=== PATIENT | female | born 1945 | race African-American/Black ===

== ENCOUNTER → 2016-07-27 | Outpatient (CLI) | payer MEDICARE ==
--- NOTE | 2016-07-27 11:42 | RAD ---
Indication thyromegaly. Grayscale imaging of the thyroid was performed. Note is made of a previous examination 09/22/2011. The right lobe of the thyroid measures 6.2 x 4.6 x 3.7 cm. The right lobe has a very inhomogeneous appearance and is dominated by a 5.5 cm nodule. The left lobe of the thyroid measures 5.5 x 3 x 3.3 cm and too is dominated by a single large 4 cm nodule. IMPRESSION: Enlarged thyroid. Each lobe of the thyroid contains a dominant nodule as outlined above
--- NOTE | 2016-07-27 14:47 | RAD ---
DATE: 07/27/2016 EXAM: DIGITAL SCREEN BILAT W/CAD HISTORY: Screening COMPARISON: 09/22/2011 This study was interpreted with the benefit of Computerized Aided Detection (CAD). FINDINGS: Breast Density: HETERO The breast parenchyma Is heterogeneiously dense, which could reduce sensitivity of mammography. Breast parenchyma level C. No dominant mass or suspect calcifications are seen in either breast. Benign-appearing calcifications are noted in the breasts. A significant change relative to the previous exam is not seen. IMPRESSION: Benign findings BI-RADS CATEGORY: 2 BENIGN FINDING(S) RECOMMENDED FOLLOW-UP: 12M 12 MONTH FOLLOW-UP PQRS compliance statement: Patient information was entered into a reminder system with a target due date 07/27/2017 for the next mammogram. Mammography is a sensitive method for finding small breast cancers, but it does not detect them all and is not a substitute for careful clinical examination. A negative mammogram does not negate a clinically suspicious finding and should not result in delay in biopsying a clinically suspicious abnormality. "Our facility is accredited by the [employer] Mammography Program."
== END | disposition home or self-care (01) ==
LOC: MAMMO 09:49
PROVIDERS: ATTEND Family Medicine
DX: Z12.31 Encounter for screening mammogram for malignant neoplasm of breast (principal); Z78.0 Asymptomatic menopausal state; E01.0 Iodine-deficiency related diffuse (endemic) goiter
CPT/HCPCS: 76536; G0202; 77067

== ENCOUNTER → 2016-08-25 | Outpatient (CLI) | payer MEDICARE ==
[~2016-08-25] VITALS: Ht 157.5 cm; Wt 77.1 kg
[~2016-08-25] MED LIST: B12 PO; ERGO500027 PO; MULT-114 PO; [UNRECOGNIZED DRUG - REMARK] PO; [UNRECOGNIZED DRUG - REMARK] PO
[2016-08-25 10:00] VITALS: BP 152/79
--- NOTE | 2016-08-25 12:23 | RAD ---
Ultrasound-guided bilateral thyroid biopsy, 08/25/2016: History: Dominant thyroid nodules Previous studies demonstrated a multinodular thyroid gland with large, dominant heterogeneous nodules in both lobes. Under local anesthesia, aseptic conditions and sonographic guidance we first targeted the dominant nodule in the right lobe of the gland. A 25-gauge needle was passed into this nodule via an anteromedial approach. 4 separate aspirates were obtained from this nodule with the materials sent to pathology for evaluation. In the same manner we then targeted the dominant left thyroid nodule. 4 additional 25-gauge aspirates from the left thyroid nodule were obtained and sent to pathology for evaluation. Hemostasis was then obtained. The patient tolerated the procedure well and left the department in good condition. The pathology results are pending.
--- NOTE | 2016-08-29 10:02 | PATHOLOGY ---
CYTOPATHOLOGY REPORT CLINICAL HISTORY: Bilateral thyroid nodules SPECIMEN(S) RECEIVED: A.Fine needle aspiration, Left thyroid B.Fine needle aspiration, Right thyroid FINAL DIAGNOSIS: A. Fine needle aspiration, left thyroid: - Thornton category: Benign. - Specimen consists of benign thyroid follicular cells admixed with hemosiderin-laden macrophages, colloid, and blood (see comment). B. Fine needle aspiration, right thyroid: - Thornton category: Benign. - Specimen consists of benign thyroid follicular cells admixed with hemosiderin-laden macrophages, colloid, and blood (see comment). COMMENT: The findings are most consistent with a follicular lesion, favor an adenomatoid nodule. 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 This case is also reviewed by Dr. Keesha oMntague. (GIA:annita; d/t: 08/26/16) PATHOLOGIST: Demetrius Monzon M.D. REPORT ELECTRONICALLY SIGNED BY: Demetrius Monzon M.D. DATE/TIME: 08/29/2016 10:01 GROSS PATHOLOGY: A. Fine needle aspiration, Left thyroid: The specimen is labeled "Iza Lang" and consists of two H and E slides, two fixed slides, two air dried slides. Thirty mL of clear pink fluid in CytoLyt from the needle rinse is also submitted and one ThinPrep slide was prepared from this material. One RNA retain vial has been received. B. Fine needle aspiration, Right thyroid: The specimen is labeled "Iza Lang" and consists of Two H and E slides, two fixed slides, two air dried slides. Thirty mL of clear pink flui in CytoLyt from the needle rinse is also submitted and one ThinPrep slide was prepared from this material. One RNA retain vial has been received. (mm 08.25.2016) SWITCHER(S): FIONA Vargas(ASCP)IAC INITIAL CPT CODE(S): A; 94077 B; 76986 Professional services performed by [facility] at [address] [address] Technical services performed by [facility] at [address] [place] [address], [address], [place] [address]. PATIENT: IZA LANG /AGE: 9 1945 (Age: 70) SEX: F PATIENT #: [id number] ALT CASE #: SPECIMEN COLLECTION DATE: 08/25/2016 SPECIMEN RECEIVED DATE: 08/25/2016 [facility] [address] [facility], [address] [place] [address] PHONE: [phone] DIRECTOR: Delfin Chase M.D. * * * END OF REPORT * * *
== END | disposition home or self-care (01) ==
LOC: US 09:41
PROVIDERS: ATTEND Family Medicine
DX: E04.1 Nontoxic single thyroid nodule (principal); I10 Essential (primary) hypertension
CPT/HCPCS: 60300; 76942; 88173

== ENCOUNTER 2017-04-08 15:05 | Emergency (ER) | payer MEDICARE ==
[2017-04-08] MEDS: IV NORMAL SALINE 1000ML BAG 1,000 ML IV ×2 (15:58)
[2017-04-08] MEDS: ONDANSETRON PF 4 MG/2 ML VIAL. IV ×2 (15:59)
[2017-04-08 16:05] LABS: BASO % 1 % (0-3); EOS % 0 % (0-3); HEMATOCRIT 36.8 % (36.0-47.0); HEMOGLOBIN 12.1 g/dL (12.0-15.5); LYMPH # 0.5 x10^3/uL (1.0-4.8); LYMPH % 9 % (24-48); MEAN CORPUSCULAR HEMOGLOBIN 28 pg (25-35); MEAN CORPUSCULAR HGB CONC 33 g/dL (31-37); MEAN CORPUSCULAR VOLUME 84 fL (79-100); MONO # 0.2 x10^3/uL (0.0-1.1); MONO % 4 % (0-9); NEUT # 5.2 x10^3uL (1.8-7.7); NEUT % 87 % (31-73); PLATELET COUNT 171 x10^3/uL (140-400); RED BLOOD COUNT 4.37 x10^6/uL (3.50-5.40); RED CELL DISTRIBUTION WIDTH 14.7 % (11.5-14.5)
[2017-04-08 16:07] LABS: ADD MAN DIFF? YES
[2017-04-08 16:10] LABS: ANION GAP 9 (6-14); BLOOD UREA NITROGEN 14 mg/dL (7-20); BUN/CREATININE RATIO 18 (6-20); CALCIUM 9.7 mg/dL (8.5-10.1); CARBON DIOXIDE 27 mmol/L (21-32); CHLORIDE 103 mmol/L (98-107); CREATININE 0.8 mg/dL (0.6-1.0); GFR 85.1; GLUCOSE 119 mg/dL (70-99); POTASSIUM 4.2 mmol/L (3.5-5.1); SODIUM 139 mmol/L (136-145)
[2017-04-08 16:16] LABS: ALBUMIN 3.9 g/dL (3.4-5.0); ALBUMIN/GLOBULIN RATIO 1.1 (1.0-1.7); ALK PHOS 78 U/L (46-116); ALT (SGPT) 14 U/L (14-59); AST (SGOT) 16 U/L (15-37); LIPASE 75 U/L (73-393); TOTAL BILIRUBIN 0.4 mg/dL (0.2-1.0); TOTAL PROTEIN 7.6 g/dL (6.4-8.2)
[2017-04-08 16:18] LABS: TROPONINI < 0.017 ng/mL (0.000-0.055)
[2017-04-08 17:17] LABS: % ATYL 3 % (0-0); % BANDS 7 % (0-9); % BASOS 2 % (0-3); % LYMPHS 6 % (24-48); % MONOS 1 % (0-10); % SEGS 81 % (35-66); PLT ESTIMATE ADEQUATE (ADEQUATE)
[2017-04-08 17:38] LABS: BILIRUBIN,URINE NEGATIVE (NEG); CLARITY,URINE CLEAR; COLOR,URINE YELLOW; GLUCOSE,URINE NEGATIVE (NEG); NITRITE,URINE NEGATIVE (NEG); PH,URINE 7.5; PROTEIN,URINE NEGATIVE (NEG-TRACE)
[2017-04-08 17:43] LABS: BACTERIA,URINE 0 /HPF (0-FEW); RBC,URINE 0 /HPF (0-2); SQUAMOUS EPITHELIAL CELL,UR FEW /LPF; WBC,URINE 0 /HPF (0-4)
== END 2017-04-08 18:14 | disposition home or self-care (01) ==
LOC: ER 15:05
DX: B34.9 Viral infection, unspecified (principal); E86.0 Dehydration; E03.9 Hypothyroidism, unspecified; I10 Essential (primary) hypertension; E89.0 Postprocedural hypothyroidism; Z88.0 Allergy status to penicillin; Z98.51 Tubal ligation status
CPT/HCPCS: 36415; 80053; 81001; 83690; 84484; 85007; 85025; 93005; 96361; 96374; 99285-25; J2405; J7030

== ENCOUNTER → 2017-07-25 | Outpatient (CLI) | payer OTHER, MEDICARE | END | disposition home or self-care (01) | LOC: US 14:54 | DX: Z12.31 Encounter for screening mammogram for malignant neoplasm of breast (principal); E04.2 Nontoxic multinodular goiter | CPT/HCPCS: 76536; 77063; 77067 ==

== ENCOUNTER 2020-06-29 10:25 | Emergency (ER) | payer MEDICARE ==
[~2020-06-29] VITALS: Ht 159.4 cm; Wt 69.0 kg
[~2020-06-29 10:25] MED LIST changes: +ONDA4TAB10 SL
[2020-06-29] MEDS ORDERED: IV NORMAL SALINE 1000ML BAG 1,000 ML IV SCH (11:00)
[2020-06-29] MEDS ORDERED: ONDANSETRON PF 4 MG/2 ML VIAL. IVP ONE (11:00)
--- NOTE | 2020-06-29 11:16 | RAD ---
CT Head without contrast Indication: Reason: dizziness / Spl. Instructions: / History: Date of service:06/29/2020 10:58 AM. Comparison: None available. Technique: Contiguous helical images are obtained from foramen magnum, to the vertex without IV contr ast . Findings: Prominence of cortical sulci and ventricular system is noted consistent with age-related at rophy. There are areas of mild low attenuation both periventricular and subcortical deep white matter cyst and small vessel ischemic changes. No mass , midline shift , hemorrhage or acute infarct is pr esent. Bone windows are normal without calvarial abnormality. The visualized orbits, paranasal sinuse s and mastoid air cells are clear . Impression: 1. No acute intracranial process detected. 2. Mild age-related atrophy is noted. PQRS Compliance Statement: One or more of the following individualized dose reduction techniques were utilized for this examinat ion: 1. Automated exposure control 2. Adjustment of the mA and/or kV according to patient size 3. Use of iterative reconstruction technique Electronically signed by: Yolanda Shields MD (06/29/2020 11:14 AM) [id number]
[2020-06-29 11:24] LABS: CALCIUM 8.6 mg/dL (8.5-10.1); CREATININE 0.8 mg/dL (0.6-1.0); GFR 84.4; POTASSIUM 3.8 mmol/L (3.5-5.1)
[2020-06-29 11:31] LABS: ALBUMIN 3.5 g/dL (3.4-5.0); TOTAL BILIRUBIN 0.3 mg/dL (0.2-1.0)
[2020-06-29 11:40] LABS: BASO % 1 % (0-3); EOS # 0.1 x10^3/uL (0.0-0.7); EOS % 2 % (0-3); HEMATOCRIT 35.8 % (36.0-47.0); LYMPH # 0.7 x10^3/uL (1.0-4.8); LYMPH % 17 % (24-48); MEAN CORPUSCULAR HEMOGLOBIN 29 pg (25-35); MEAN CORPUSCULAR HGB CONC 34 g/dL (31-37); MEAN CORPUSCULAR VOLUME 85 fL (79-100); MONO # 0.2 x10^3/uL (0.0-1.1); MONO % 4 % (0-9); NEUT # 3.3 x10^3/uL (1.8-7.7); NEUT % 77 % (31-73); PLATELET COUNT 143 x10^3/uL (140-400); RED CELL DISTRIBUTION WIDTH 14.5 % (11.5-14.5); WHITE BLOOD COUNT 4.3 x10^3/uL (4.0-11.0)
[2020-06-29 11:53] LABS: BARBITURATES NEG (NEG); BENZODIAZEPINES NEG (NEG); CANNABINOIDS NEG (NEG); COCAINE NEG (NEG); METHADONE NEG (NEG); OPIATES NEG (NEG); PHENCYCLIDINE NEG (NEG)
--- NOTE | 2020-06-29 11:55 | EKG ---
[facility] [address] [place] [address] Test Date: 2020-06-29 Test Time: 10:47:22 Pat Name: REBECA WORLEY Department: Room: Gender: F Multiple Coil Winder: QUYNH : 1945 Requested By: CHOLO MILLS Order Number: [id number] Reading MD: Measurements Intervals [place] Rate: 66 P: 39 [place]: 174 QRS: 12 QRSD: 74 T: 28 QT: 438 QTc: 461 Interpretive Statements SINUS RHYTHM NO SPECIFIC ECG ABNORMALITIES RI6.01 No previous ECG available for comparison
[2020-06-29 11:57] LABS: AMPHETAMINE/METHAMPHETAMINE NEG (NEG)
--- NOTE | 2020-06-29 12:08 | PHYS DOC ---
Past Medical History Past Medical History: Hypertension, Hypothyroid Past Surgical History: Tubal ligation, Other Additional Past Surgical Histo: thyrodectomy Smoking Status: Never Smoker Alcohol Use: None Drug Use: None Adult General Chief Complaint Chief Complaint: WEAKNESS/GENERALIZED HPI HPI Patient is a 74 year old female presenting the emergency department complaint of new onset of nausea vomiting. Patient states approximately 6 hours prior to arrival she started having new onset of sensation of generalized dizziness not associated with movement. This then worsened in severity and developed new onset of nausea with nonbloody nonbilious vomiting. Patient also states that she is generally feeling fatigued but denies any pain. Currently denies any headache, chest pain or abdominal pain. Review of Systems Review of Systems Constitutional: Denies fever or chills [] Eyes: Denies change in visual acuity, redness, or eye pain [] HENT: Denies nasal congestion or sore throat [] Respiratory: Denies cough or shortness of breath [] Cardiovascular: No additional information not addressed in HPI [] GI: Denies abdominal pain, nausea, vomiting, bloody stools or diarrhea [] : Denies dysuria or hematuria [] Musculoskeletal: Denies back pain or joint pain [] Integument: Denies rash or skin lesions [] Neurologic: Denies headache, focal weakness or sensory changes [] Endocrine: Denies polyuria or polydipsia [] All other systems were reviewed and found to be within normal limits, except as documented in this note. Current Medications Current Medications Current Medications Medications (Trade) Dose Ordered Sig/Luís Start Time Stop Time Status Last Admin Dose Admin Ondansetron HCl (Zofran) 4 mg 1X ONCE 06/29/20 11:00 06/29/20 11:01 DC 06/29/20 11:11 4 MG Sodium Chloride 1,000 ml @ 1,000 mls/hr Q1H 06/29/20 11:00 06/29/20 11:59 DC 06/29/20 11:11 1,000 MLS/HR Allergies Allergies Allergies Coded Allergies Type Severity Reaction Last Updated Verified Penicillins Allergy Intermediate RASH 08/25/16 Yes Physical Exam Physical Exam Constitutional: Well developed, well nourished, no acute distress, non-toxic appearance. [] HENT: Normocephalic, atraumatic, bilateral external ears normal, oropharynx moist, no oral exudates, nose normal. [] Eyes: PERRLA, EOMI, conjunctiva normal, no discharge. [] Neck: Normal range of motion, no tenderness, supple, no stridor. [] Cardiovascular:Heart rate regular rhythm, no murmur [] Lungs & Thorax: Bilateral breath sounds clear to auscultation [] Abdomen: Bowel sounds normal, soft, no tenderness, no masses, no pulsatile mas ses. [] Skin: Warm, dry, no erythema, no rash. [] Back: No tenderness, no CVA tenderness. [] Extremities: No tenderness, no cyanosis, no clubbing, ROM intact, no edema. [] Neurologic: Alert and oriented X 3, normal motor function, normal sensory function, no focal deficits noted. [] Psychologic: Affect normal, judgement normal, mood normal. [] Current Patient Data Vital Signs Vital Signs Date Time Temp Pulse Resp B/P (MAP) Pulse Ox O2 Delivery O2 Flow Rate FiO2 06/29/20 10:25 97.6 98 16 164/81 (108) 99 Room Air 97.6 Lab Values Laboratory Tests Test 06/29/20 10:53 06/29/20 11:01 06/29/20 11:25 Glucose (Fingerstick) 139 mg/dL (70-99) H White Blood Count 4.3 x10^3/uL (4.0-11.0) Red Blood Count 4.20 x10^6/uL (3.50-5.40) Hemoglobin 12.0 g/dL (12.0-15.5) Hematocrit 35.8 % (36.0-47.0) L Mean Corpuscular Volume 85 fL (79-100) Mean Corpuscular Hemoglobin 29 pg (25-35) Mean Corpuscular Hemoglobin Concent 34 g/dL (31-37) Red Cell Distribution Width 14.5 % (11.5-14.5) Platelet Count 143 x10^3/uL (140-400) Neutrophils (%) (Auto) 77 % (31-73) H Lymphocytes (%) (Auto) 17 % (24-48) L Monocytes (%) (Auto) 4 % (0-9) Eosinophils (%) (Auto) 2 % (0-3) Basophils (%) (Auto) 1 % (0-3) Neutrophils # (Auto) 3.3 x10^3/uL (1.8-7.7) Lymphocytes # (Auto) 0.7 x10^3/uL (1.0-4.8) L Monocytes # (Auto) 0.2 x10^3/uL (0.0-1.1) Eosinophils # (Auto) 0.1 x10^3/uL (0.0-0.7) Basophils # (Auto) 0.0 x10^3/uL (0.0-0.2) Sodium Level 143 mmol/L (136-145) Potassium Level 3.8 mmol/L (3.5-5.1) Chloride Level 108 mmol/L (98-107) H Carbon Dioxide Level 27 mmol/L (21-32) Anion Gap 8 (6-14) Blood Urea Nitrogen 18 mg/dL (7-20) Creatinine 0.8 mg/dL (0.6-1.0) Estimated GFR (Cockcroft-Gault) 84.4 BUN/Creatinine Ratio 23 (6-20) H Glucose Level 148 mg/dL (70-99) H Calcium Level 8.6 mg/dL (8.5-10.1) Total Bilirubin 0.3 mg/dL (0.2-1.0) Aspartate Amino Transferase (AST) 19 U/L (15-37) Alanine Aminotransferase (ALT) 16 U/L (14-59) Alkaline Phosphatase 68 U/L (46-116) Creatine Kinase 121 U/L (26-192) Total Protein 7.0 g/dL (6.4-8.2) Albumin 3.5 g/dL (3.4-5.0) Albumin/Globulin Ratio 1.0 (1.0-1.7) Lipase 59 U/L (73-393) L Urine Collection Type Unknown Urine Color Straw Urine Clarity Clear Urine pH 7.0 (<5.0-8.0) Urine Specific [place] >=1.030 (1.000-1.030) Urine Protein Negative mg/dL (NEG-TRACE) Urine Glucose (UA) Negative mg/dL (NEG) Urine Ketones (Stick) Negative mg/dL (NEG) Urine Blood Negative (NEG) Urine Nitrite Negative (NEG) Urine Bilirubin Negative (NEG) Urine Urobilinogen Dipstick 0.2 mg/dL (0.2 mg/dL) Urine Leukocyte Esterase Negative (NEG) Urine RBC 0 /HPF (0-2) Urine WBC 0 /HPF (0-4) Urine Amorphous Sediment Present /HPF Urine Bacteria 0 /HPF (0-FEW) Urine Opiates Screen Neg (NEG) Urine Methadone Screen Neg (NEG) Urine Barbiturates Neg (NEG) Urine Phencyclidine Screen Neg (NEG) Urine Amphetamine/Methamphetamine Neg (NEG) Urine Benzodiazepines Screen Neg (NEG) Urine Cocaine Screen Neg (NEG) Urine Cannabinoids Screen Neg (NEG) Urine Ethyl Alcohol Neg (NEG) Laboratory Tests 06/29/20 11:01 Laboratory Tests 06/29/20 11:01 EKG EKG [] Radiology/Procedures Radiology/Procedures [] Course & Med Decision Making Course & Med Decision Making Pertinent Labs and Imaging studies reviewed. (See chart for details) 34-year-old female presented emergency department for new onset of dizziness associated nausea and vomiting. No significant headache which she reports and there is no significant neurologic findings or abdominal pain or tenderness on exam. Obtain a CT head to make sure there is no evidence of central findings and will treat the patient symptomatically. 13:45 - CT head negative for any acute intracranial process or hemorrhage. Patient treated symptomatically now states that her symptoms have improved and is denying any dizziness. Repeat hints exam negative and reassuring against central process. Patient ambulated to the bathroom without difficulty is no longer nauseous and blood pressure is in the normal limits. At this time will discharge Dragon Disclaimer Dragon Disclaimer This electronic medical record was generated, in whole or in part, using a voice recognition dictation system. Departure Departure Impression: Primary Impression: Dizziness Additional Impression: Nausea and vomiting Disposition: HOME / SELF CARE / HOMELESS Condition: GOOD Referrals: ANA MORFIN MD (PCP) Patient Instructions: Nausea and Vomiting Additional Instructions: EMERGENCY DEPARTMENT GENERAL DISCHARGE INSTRUCTIONS Thank you for coming to [facility] Emergency Department (ED) today and trusting us with you care. We trust that you had a positive experience in our Emergency Department. If you wish to speak to the department management, you may call the Director at [phone]. YOUR FOLLOW UP INSTRUCTIONS ARE FOLLOWS: 1. Do you have a private Doctor? If you do not have a private doctor, please ask for a resource list of physicians or clinics that may be able to assist you with follow up care. 2. The Emergency Physicain has interpreted your x-rays. The X-Ray specialist will also review them. If there is a change in the findings, you will be notified in 48 hours when at all possible. 3. A lab test or culture has been done, your results will be reviewed and you will be notified if you need a change in treatment. ADDITIONAL INSTRUCTIONS AND INFORMATION: 1. Your care today has been supervised by a physician who is specially trained in emergency care. Many problems require more than one evaluation for a complete diagnosis and treatment. We recommend that you schedule your follow up appointment as re commended to ensure complete treatment of you illness or injury. If you are unable to obtain follow up care and continue to have a problem, or if your condition worsens, we recommend that you return to the ED. 2. We are not able to safely determine your condition over the phone nor are we able to give sound medical advice over the phone. For these safety reasons, if you call for medical advice we will ask you to come to the ED for further evaluation. 3. If you have any questions regarding these discharge instructions please call the ED at [phone]. SAFETY INFORMATION: In the interest of safety, wellness, and injury prevention; we encourage you to wear your sealbelt, if you smoke; quite smoking, and we encourage family to use a protective helmet for bicycling and other sporting events that present an increased risk for head injury. IF YOUR SYMPTOMS WORSEN OR NEW SYMPTOMS DEVELOP, OR YOU HAVE CONCERNS ABOUT YOUR CONDITION; OR IF YOUR CONDITION WORSENS WHILE YOU ARE WAITING FOR YOUR FOLLOW UP APPOINTMENT; EITHER CONTACT YOUR PRIMARY CARE DOCTOR, THE PHYSICIAN WHOSE NAME AND NUMBER YOU WERE GIVEN, OR RETURN TO THE ED IMMEDIATELY. Scripts Ondansetron Hcl (ZOFRAN) 4 Mg Tablet 1 TAB PO PRN Q6-8HRS for nausea, #12 TAB Prov: CHOLO MILLS MD 06/29/20 Meclizine Hcl (MECLIZINE HCL) 25 Mg Tablet 1 TAB PO TID for dizziness, #20 TAB Prov: CHOLO MILLS MD 06/29/20 Problem Qualifiers CHOLO MILLS MD Jun 29, 2020 12:08
[2020-06-29 12:40] LABS: BILIRUBIN,URINE NEGATIVE (NEG); CLARITY,URINE CLEAR; COLOR,URINE STRAW; NITRITE,URINE NEGATIVE (NEG); PROTEIN,URINE NEGATIVE (NEG-TRACE); UROBILINOGEN,URINE 0.2 mg/dL (0.2 mg/dL)
[2020-06-29 12:41] LABS: AMORPHOUS SEDIMENT,UR PRESENT /HPF; BACTERIA,URINE 0 /HPF (0-FEW); RBC,URINE 0 /HPF (0-2); WBC,URINE 0 /HPF (0-4)
[2020-06-29 13:38] VITALS: BP 156/72
[2020-06-29] MEDS ORDERED: ONDA4TAB7 PO (13:50)
[2020-06-29] MEDS ORDERED: MECL-75 PO (13:50)
== END 2020-06-29 13:55 | disposition home or self-care (01) ==
LOC: ER 10:25
DX: R42 Dizziness and giddiness (principal); R11.2 Nausea with vomiting, unspecified; R20.2 Paresthesia of skin; R53.83 Other fatigue; I10 Essential (primary) hypertension; E03.9 Hypothyroidism, unspecified; Z98.51 Tubal ligation status; Z98.890 Other specified postprocedural states
CPT/HCPCS: 36415; 70450; 80053; 80307; 81001; 82550; 82962; 83690; 85025; 93005; 96361; 96374; 99285; J2405; J7030

== ENCOUNTER → 2020-11-19 | Outpatient (CLI) | payer MEDICARE ==
[~2020-11-19] MED LIST changes: +MECL-75 PO; +ONDA4TAB7 PO
--- NOTE | 2020-11-19 14:44 | RAD ---
EXAM: Thyroid sonogram. HISTORY: Thyromegaly. TECHNIQUE: Sonographic imaging of the thyroid was performed. COMPARISON: 07/25/2017. FINDINGS: The right there are lobe measures 7.9 x 5.8 x 4.6 cm. The left thyroid lobe measures 5.0 x 3.1 x 2.8 cm. The thyroid isthmus measures 4.1 mm. The thyroid parenchyma is diffusely heterogeneous and contains bilateral dominant nodules. The domina nt nodule on the right is heterogeneous and predominantly isoechoic measuring 5.9 x 5.1 x 3.5 cm, pre viously measuring 5.9 x 5.6 x 4.5 cm. The dominant nodule on the left is heterogeneous and predominan tly isoechoic measuring 3.9 x 2.8 x 2.7 cm, previously measuring 3.9 x 3.4 x 3.0 cm. This demonstrate s tiny internal cystic components. IMPRESSION:. 1. Heterogeneous enlarged thyroid 2. Dominant bilateral thyroid nodules measuring 5.9 cm on the right and 3.9 cm the left. TI-RADS Che gory 3. Fine-needle aspiration of both lesions was previously performed with benign pathology finding s. The lesions are stable to slightly decreased in size compared to prior studies, allowing for diffe rences in imaging and measurement technique. Electronically signed by: Ely Marie MD (11/19/2020 2:42 PM) [id number]
--- NOTE | 2020-11-19 14:52 | RAD ---
EXAM: Bilateral digital screening mammogram with tomosynthesis. HISTORY: 74-year-old female presents for screening mammography. TECHNIQUE: Full-field digital craniocaudal and mediolateral oblique 2D and 3D tomosynthesis images of both breasts are obtained for evaluation. Computer aided detection was applied. COMPARISON: 07/25/2017 BREAST PARENCHYMAL DENSITY: Level D - Extremely dense. FINDINGS: There is no new suspicious mass, microcalcification or region of architectural distortion. There are stable areas of benign asymmetry and nodularity within both breasts. There are multiple martha ign calcifications. IMPRESSION: BI-RADS Category 2: Benign finding(s). RECOMMENDATION: Annual mammography is recommended. If your mammogram demonstrates that you have dense breast tissue, which could hide abnormalities, and if you have other risk factors for breast cancer that have been identified, you might benefit from s upplemental screening tests that may be suggested by your ordering physician. Dense breast tissue, i n and of itself, is a relatively common condition. This information is not provided to cause undue c oncern, but rather to raise your awareness and to promote discussion with your physician regarding th e presence of other risk factors, in addition to dense breast tissue. A report of your mammography re sults will be sent to you and your physician. You should contact your physician if you have any ques tions or concerns regarding this report. Mammography is a sensitive method for finding small breast cancers, but it does not detect them all a nd is not a substitute for careful clinical examination. A negative mammogram does not negate a clin ically suspicious finding and should not result in delay in biopsying a clinically suspicious abnorma lity. PQRS compliance statement - Patient information was entered into a reminder system with a target due date for the next mammogram. "Our facility is accredited by the [employer] Mammography Program." Electronically signed by: Ely Marie MD (11/19/2020 2:50 PM) [id number]
== END ==
LOC: US 14:06
PROVIDERS: ATTEND Family Medicine
DX: Z12.31 Encounter for screening mammogram for malignant neoplasm of breast (principal); E04.2 Nontoxic multinodular goiter
CPT/HCPCS: 76536; 77063; 77067

== ENCOUNTER 2020-12-08 13:48 | Observation (INO) | payer MEDICARE ==
[~2020-12-08] VITALS: Ht 157.5 cm; Wt 70.0 kg
--- NOTE | 2020-12-08 14:29 | PHYS DOC ---
Past Medical History Past Medical History: Hypertension, Hypothyroid (EFRENCIARAN HEAT SET OPERATOR) Past Surgical History: Tubal ligation, Other Additional Past Surgical Histo: thyrodectomy (EFRENCIARAN M HEAT SET OPERATOR) Smoking Status: Never Smoker Alcohol Use: None Drug Use: None (EFRENCIARAN M HEAT SET OPERATOR) General Adult EDM: Chief Complaint: FLU SYMPTOM HPI: HPI: Patient is a 75 year old female who presents with states that today she started having a headache on both sides of her head with dizziness and vomiting. She states she does feel slightly short of breath. She states she cannot walk straight was unable to get up. She states she does not have any abdominal pain just the nausea. She states the room is not actually spinning. She denies any vision change. She states she has had this before in the past but does not know that she has been diagnosed with anything. When looking in her chart she had a CT of the head in June that showed no acute findings. Patient does have tremors but she states that is normal for her. She denies any complaints, has been, abdominal pain, diarrhea, fever, cough, numbness or tingling, focal weakness, urinary symptoms, back pain, neck pain. (CIARAN SCHWARTZ HEAT SET OPERATOR) Review of Systems: Review of Systems: Constitutional: Denies fever or chills. [] Eyes: Denies change in visual acuity. [] HENT: Denies nasal congestion or sore throat. [] Respiratory: Denies cough or +shortness of breath. [] Cardiovascular: Denies chest pain or edema. [] GI: Denies abdominal pain, nausea, vomiting, bloody stools or diarrhea. [] : Denies dysuria. [] Musculoskeletal: Denies back pain or joint pain. + " Wobbling "[] Integument: Denies rash. [] Neurologic: + headache, denies focal weakness or sensory changes. + Dizziness [] Endocrine: Denies polyuria or polydipsia. [] Lymphatic: Denies swollen glands. [] Psychiatric: Denies depression or anxiety. [] (CIARAN SCHWARTZ HEAT SET OPERATOR) Heart Score: C/O Chest Pain: No Risk Factors: Risk Factors: DM, Current or recent (<one month) smoker, HTN, HLP, family his tory of CAD, obesity. Risk Scores: Score 0 - 3: 2.5% MACE over next 6 weeks - Discharge Home Score 4 - 6: 20.3% MACE over next 6 weeks - Admit for Clinical Observation Score 7 - 10: 72.7% MACE over next 6 weeks - Early Invasive Strategies (CIARAN SCHWARTZ APRN) Allergies: Allergies: Allergies Coded Allergies Type Severity Reaction Last Updated Verified Penicillins Allergy Intermediate RASH 08/25/16 Yes (CIARAN SCHWARTZ APRN) Physical Exam: PE: Constitutional: Well developed, well nourished, no acute distress, non-toxic appearance. [] HENT: Normocephalic, atraumatic, bilateral external ears normal, oropharynx moist, no oral exudates, nose normal. [] Eyes: PERRLA, EOMI, conjunctiva normal, no discharge. Nystagmus [] Neck: Normal range of motion, no tenderness, supple, no stridor. [] Cardiovascular:Heart rate regular rhythm, no murmur [] Lungs & Thorax: Bilateral breath sounds clear to auscultation [] Abdomen: Bowel sounds normal, soft, no tenderness, no masses, no pulsatile masses. [] Skin: Warm, dry, no erythema, no rash. [] Back: No tenderness, no CVA tenderness. [] Extremities: No tenderness, no cyanosis, no clubbing, ROM intact, no edema. [] Neurologic: Alert and oriented X 3, normal motor function, normal sensory function, no focal deficits noted. [] Psychologic: Affect normal, judgement normal, mood normal. [] (CIARAN SCHWARTZ APRN) EKG: EK and read by Dr. Bueno as sinus rhythm and no STEMI [] (CIARAN SCHWARTZ APRN) Radiology/Procedures: Radiology/Procedures: [] Impression: [facility] [address] [place], [place] [id number] IMAGING REPORT Signed PATIENT: REBECA WORLEY ACCOUNT: [id number] : 1945 LOCATION: ER AGE: 75 SEX: F EXAM STATUS: PRE ER ORD. PHYSICIAN: CIARAN SCHWARTZ APRN REASON: dizziness PROCEDURE: CT HEAD WO CONTRAST CT HEAD/BRAIN WO Date: 12/08/2020 2:27 PM Clinical Indication: Reason: dizziness / Spl. Instructions: / History: Comparison: 06/29/2020. Technique: 5 mm axial tomographic images were obtained of the head without contrast. These were viewed on brain and bone windows. One or more of the following dose reduction techniques were utilized: Automated exposure control (AEC), Adjustment of mA and/or kV according to patient size, Use of iterative reconstruction technique such as ASiR, CT scan done according to ALARA and image gently/image wisely Findings: Mild generalized cerebral and cerebellar volume loss. Mild nonspecific periventricular hypoattenuation, most commonly seen with chronic small vessel ischemic disease. Calcified atherosclerosis of the bilateral cavernous and parac linoid internal carotid arteries and intracranial vertebral arteries. No intra- or extra-axial mass or fluid collection. No acute hemorrhage. The ventricles are normal in size, shape, and morphology. The watson-white matter junction is normal. The subarachnoid cisterns are patent. The visualized paranasal sinuses are normal. The visualized portions of the orbits and globes are normal. The mastoid air cells are clear. The door serviceman topogram shows no lytic lesion or fracture. Impression: No acute intracranial process. Mild cerebral volume loss. Mild chronic small vessel ischemic disease. Electronically signed by: Belgica Pierre MD (12/08/2020 3:05 PM) [id number] DICTATED and SIGNED BY: BELGICA PIERRE MD DATE: 12/08/20 [id number] [facility] [address] [place] [address] IMAGING REPORT Signed PATIENT: REBECA WORLEY ACCOUNT: [id number] : 1945 LOCATION: ER AGE: 75 SEX: F EXAM STATUS: PRE ER ORD. PHYSICIAN: CIARAN SCHWARTZ APRN REASON: soa PROCEDURE: PORTABLE CHEST 1V Single view of the chest. 12/08/2020 2:24 PM Indication: Reason: Shortness of breath Comparison: None Findings: There is no focal consolidation. There is no pleural effusion or pneumothorax. The cardiomediastinal silhouette and pulmonary vasculature are within normal limits. No acute osseous abnormalities are seen. 2 small sclerotic foci in the proximal left humerus noted, possibly bone islands. No comparison is available. Impression:: No evidence of acute cardiopulmonary process. Electronically signed by: Lee Brock MD (12/08/2020 2:46 PM) [id number] DICTATED and SIGNED BY: LEE BROCK MD DATE: 12/08/20 [id number] (CIARAN SCHWARTZ APRN) Course & Med Decision Making: Course & Med Decision Making Pertinent Labs and Imaging studies reviewed. (See chart for details) See HPI. Alert and oriented x4. Ambulatory steady gait. Speaks in full clear sentences. No extremity edema. Moving all extremities equally with equal strength and warehouse selector. No vision loss. Sensations intact. No facial droop. Nystagmus present. PERRLA. Denies falling or hitting her head. Skin pink warm and dry. Afebrile. Hwtind-zzsl-xccnft intact. Chest x-ray shows no acute findings. Blood work shows no acute findings. No infection in the urine. Patient states he still having headache. Patient being admitted for observation. I will consult neurology. (CIARAN SCHWARTZ APRN) Dragon Disclaimer: Dragon Disclaimer: This electronic medical record was generated, in whole or in part, using a voice recognition dictation system. (CIARAN SCHWARTZ APRN) NIHSS Stroke Scale NIH Stroke Scale: NIH Stroke Scale Response (Comments) Value Level of Consciousness: 0 Alert/Responsive 0 LOC Questions: 0 Answers both correctly 0 LOC Commands: 0 Performs both tasks 0 Best Gaze: 0 Normal 0 Visual: 0 No visual loss 0 Facial Palsy: 0 Normal, symmetrical 0 Motor - Left Arm 0 No drift 0 Motor - Right Arm 0 No drift 0 Motor - Left Leg 0 No drift 0 Motor: Right Leg 0 No drift 0 Limb Ataxia: 0 Absent 0 Sensory: 0 No loss 0 Best Language: 0 Normal 0 Dysathria: 0 Normal 0 Extinction and Inattention: 0 Normal 0 Total 0 Departure Departure Impression: Primary Impression: Dizziness Additional Impressions: Headache Qualified Codes: R51.9 - Headache, unspecified Vomiting Qualified Codes: R11.10 - Vomiting, unspecified Disposition: ADMITTED INPATIENT Admitting Physician: JO-ANN (BAFUS,CIARAN M HEAT SET OPERATOR) Condition: STABLE Referrals: ANA MORFIN MD (PCP) Attending Signature I have participated in the care of this patient and I have reviewed and agree with all pertinent clinical information above including history, exam, and recommendations. (KARL BUENO DO) CIARAN SCHWARTZ APRN Dec 08, 2020 14:29 KARL BUENO DO Dec 08, 2020 16:53
[2020-12-08] MEDS ORDERED: ONDANSETRON PF 4 MG/2 ML VIAL. IVP ONE (14:30)
[2020-12-08] MEDS ORDERED: MECLIZINE HCL 12.5 MG TABLET. PO ONE (14:30)
[2020-12-08 14:44] LABS: BILIRUBIN,URINE NEGATIVE (NEG); CLARITY,URINE CLEAR; COLOR,URINE YELLOW; NITRITE,URINE NEGATIVE (NEG); PROTEIN,URINE NEGATIVE (NEG-TRACE)
[2020-12-08 14:48] LABS: BASO % 1 % (0-3); EOS % 1 % (0-3); HEMATOCRIT 36.4 % (36.0-47.0); HEMOGLOBIN 12.3 g/dL (12.0-15.5); LYMPH # 0.5 x10^3/uL (1.0-4.8); LYMPH % 10 % (24-48); MEAN CORPUSCULAR HEMOGLOBIN 29 pg (25-35); MEAN CORPUSCULAR HGB CONC 34 g/dL (31-37); MEAN CORPUSCULAR VOLUME 85 fL (79-100); MONO # 0.1 x10^3/uL (0.0-1.1); MONO % 3 % (0-9); NEUT # 4.4 x10^3/uL (1.8-7.7); NEUT % 86 % (31-73); PLATELET COUNT 152 x10^3/uL (140-400); RED BLOOD COUNT 4.29 x10^6/uL (3.50-5.40); RED CELL DISTRIBUTION WIDTH 14.6 % (11.5-14.5); WHITE BLOOD COUNT 5.1 x10^3/uL (4.0-11.0)
--- NOTE | 2020-12-08 14:48 | RAD ---
Single view of the chest. 12/08/2020 2:24 PM Indication: Reason: Shortness of breath Comparison: None Findings: There is no focal consolidation. There is no pleural effusion or pneumothorax. The cardiome diastinal silhouette and pulmonary vasculature are within normal limits. No acute osseous abnormaliti es are seen. 2 small sclerotic foci in the proximal left humerus noted, possibly bone islands. No com parison is available. Impression:: No evidence of acute cardiopulmonary process. Electronically signed by: Lee Brock MD (12/08/2020 2:46 PM) [id number]
[2020-12-08 14:52] LABS: BARBITURATES NEG (NEG); BENZODIAZEPINES NEG (NEG); CANNABINOIDS NEG (NEG); COCAINE NEG (NEG); METHADONE NEG (NEG); OPIATES NEG (NEG); PHENCYCLIDINE NEG (NEG)
[2020-12-08 14:55] LABS: BACTERIA,URINE FEW /HPF (0-FEW)
[2020-12-08 14:56] LABS: CALCIUM 8.9 mg/dL (8.5-10.1); CREATININE 0.8 mg/dL (0.6-1.0); GFR 84.2; POTASSIUM 3.7 mmol/L (3.5-5.1)
[2020-12-08 14:59] LABS: AMPHETAMINE/METHAMPHETAMINE NEG (NEG)
[2020-12-08 15:03] LABS: ALBUMIN 3.7 g/dL (3.4-5.0); MAGNESIUM 2.3 mg/dL (1.8-2.4); TOTAL BILIRUBIN 0.3 mg/dL (0.2-1.0); TOTAL PROTEIN 7.3 g/dL (6.4-8.2)
--- NOTE | 2020-12-08 15:07 | RAD ---
CT HEAD/BRAIN WO Date: 12/08/2020 2:27 PM Clinical Indication: Reason: dizziness / Spl. Instructions: / History: Comparison: 06/29/2020. Technique: 5 mm axial tomographic images were obtained of the head without contrast. These were view ed on brain and bone windows. One or more of the following dose reduction techniques were utilized: A utomated exposure control (AEC), Adjustment of mA and/or kV according to patient size, Use of iterati ve reconstruction technique such as ASiR, CT scan done according to ALARA and image gently/image flores ly Findings: Mild generalized cerebral and cerebellar volume loss. Mild nonspecific periventricular hypoattenuatio n, most commonly seen with chronic small vessel ischemic disease. Calcified atherosclerosis of the bi lateral cavernous and paraclinoid internal carotid arteries and intracranial vertebral arteries. No intra- or extra-axial mass or fluid collection. No acute hemorrhage. The ventricles are normal in size, shape, and morphology. The watson-white matter junction is normal. The subarachnoid cisterns are patent. The visualized paranasal sinuses are normal. The visualized portions of the orbits and globes are no rmal. The mastoid air cells are clear. The lineman topogram shows no lytic lesion or fracture. Impression: No acute intracranial process. Mild cerebral volume loss. Mild chronic small vessel ischemic disease. Electronically signed by: Checo Pierre MD (12/08/2020 3:05 PM) [id number]
--- NOTE | 2020-12-08 15:21 | EKG ---
[facility] [address] [place] [address] Test Date: 2020-12-08 Test Time: 14:22:44 Pat Name: REBECA WORLEY Department: Room: Gender: F Account Underwriter: : 1945 Requested By: CIARAN SCHWARTZ Order Number: [id number] Reading MD: Kel Wang Measurements Intervals [place] Rate: 73 P: IA: QRS: 19 QRSD: 70 T: 52 QT: 418 QTc: 464 Interpretive Statements SINUS RHYTHM Electronically Signed On 12-08-2020 17:12:59 CDT by Kel Wang
[2020-12-08] MEDS ORDERED: KETOROLAC 30 MG/ML VIAL. IVP ONE (16:45)
--- NOTE | 2020-12-08 16:59 | NUR ---
Chayo BLANCO witness pt ambulating unassisted. Chayo BLANCO notified pt denies experiencing dizziness.
[2020-12-08] MEDS ORDERED: ONDANSETRON PF 4 MG/2 ML VIAL. IVP PRN (17:00)
[2020-12-08] MEDS ORDERED: IV NORMAL SALINE 500ML BAG 500 ML IV ONE (17:00)
[2020-12-08] MEDS ORDERED: ACETAMINOPHEN 325 MG TABLET. PO PRN (17:00)
[2020-12-08 19:00] VITALS: BP 145/77
[2020-12-08] MEDS ORDERED: IV NORMAL SALINE 1000ML BAG 1,000 ML IV SCH (19:45)
--- NOTE | 2020-12-08 20:00 | HP ---
ADMIT DATE: 12/08/2020 CHIEF COMPLAINT: Flu symptoms, dizziness, headache. HISTORY OF PRESENT ILLNESS: The patient is a pleasant 75-year-old female who presents with headache, flu symptoms and some dizziness. She had some vomiting. She felt a little short of breath. She has been vaccinated. She states she cannot walk and barely stand up. She states she was worked up for the same thing within the recent past. We really never found it on official diagnosis. I discussed the case with ER physician. We are going to admit the patient. PAST MEDICAL HISTORY: Hypertension, hypothyroidism, tubal ligation, thyroidectomy. ALLERGIES: PENICILLIN. FAMILY HISTORY: Diabetes. SOCIAL HISTORY: She does not drink, smoke or take drugs. She is retired. MEDICATIONS: Reviewed, please refer to the MRAD. REVIEW OF SYSTEMS: GENERAL: No history of weight change, weakness or fevers. SKIN: No bruising, hair changes or rashes. EYES: No blurred, double or loss of vision. NOSE AND THROAT: No history of nosebleeds, hoarseness or sore throat. HEART: No history of palpitations, chest pain or shortness of breath on exertion. LUNGS: Denies cough, hemoptysis, wheezing or shortness of breath. GASTROINTESTINAL: Denies changes in appetite, nausea, vomiting, diarrhea or constipation. GENITOURINARY: No history of frequency, urgency, hesitancy or nocturia. NEUROLOGIC: Denies history of numbness, tingling, tremor or weakness. PSYCHIATRIC: No history of panic, anxiety or depression. ENDOCRINE: No history of heat or cold intolerance, polyuria or polydipsia. EXTREMITIES: Denies muscle weakness, joint pain, pain on walking or stiffness. . PHYSICAL EXAMINATION: VITALS: Within normal limits and are stable. GENERAL: No apparent distress. Alert and oriented. HEENT: Normal cephalic atraumatic, external auditory canals are patent. EYES: Extraocular muscles are intact, pupils are equally round and reactive to light and accommodation. MUSCULOSKELETAL: Well developed, well nourished, good range of motion. ENDOCRINE: No thyromegaly was palpated. LYMPHATICS: No cervical chain or axillary nodes were noted. HEMATOPOIETIC: No bruising. NECK: Supple, no JVD, no thyromegaly was noted. LUNGS: Clear to auscultation in all lung [place] without rhonchi or wheezing. HEART: RRR, S1, S2 present. Peripheral pulses intact, no obvious murmurs were noted. ABDOMEN: Soft, nontender. Positive bowel sounds no organomegaly, normal bowel sounds. EXTREMITIES: Without any cyanosis, clubbing, or edema. Pedal pulses intact, Homans sign is negative. NEUROLOGIC: Normal speech, normal tone. A and O x 3, moves all extremities, no obvious focal deficits. PSYCHIATRIC: Normal affect, normal mood. Stable. SKIN: No ulcerations or rashes, good skin turgor, no jaundice. VASCULAR: Good capillary refill, neurovascular bundle appears to be intact. LABORATORY DATA: Hematology is normal. Electrolytes are normal. CT of the head negative. ASSESSMENT AND PLAN: Flu symptoms with dizziness, nausea, abdominal pain, weakness. The patient has been admitted. We will give her IV fluids, home meds. DVT prophylaxis. Full code. Consult Neurology. PTomrTomnTom, Rhoda. PT, OT. KAYLA/DWAYNE DR: Hansa TID: [id number]
[2020-12-08 23:00] VITALS: BP 130/68
[2020-12-09] MEDS ORDERED: ATOR10TA60 PO (00:40)
[2020-12-09] MEDS ORDERED: ERGO500089 PO (00:40)
[2020-12-09] MEDS ORDERED: HYDR25TA10 PO (00:40)
[2020-12-09 03:00] VITALS: BP 140/74
[2020-12-09 07:00] VITALS: BP 149/74
[2020-12-09] MEDS ORDERED: PROPRANOLOL 10 MG TABLET. PO SCH (09:00)
--- NOTE | 2020-12-09 10:05 | NUR ---
PATIENT ALERT AND VERBALLY RESPONSIVE THIS AM, FINE TREMORS PERSIST, SEEN BY DR. FUNEZ THIS AM, PROPANOLOL ORDERED FOR TREMORS, PATIENT TO FOLLOW UP WITH HIM IN 1 MONTH AFTER DISCHARGE, PATIENT INFORMED.
--- NOTE | 2020-12-09 10:32 | PDOC2 ---
NEUROLOGY CONSULT Date of Service DOS: DATE: 12/09/20 TIME: 10:23 Reason for Consult Reason for Consult: Dizziness, tremor Referring Physician Referring Physician: Dr. Dumont Source Source: Chart review, Patient History of Present Illness History of Present Illness The patient is a 75-year-old right-handed female with headache, nausea, vomiting, and vertigo. She has had this episode once before in June. She describes true vertigo but without diplopia, dysphagia, dysarthria, numbness, weakness, cognitive change, tinnitus, or hearing loss. She feels fine this morning. She is scheduled to see JULIANNA Marin in my office regarding tremors. She describes tremors worse with stress or activity. She drinks decaffeinated coffee and avoids cola or other caffeine-containing beverages. She has never had a stroke, seizure, or head injury. Past Medical History Cardiovascular: HTN, Hyperlipidemia Endocrine: Hypothyroidism ( thyromegaly), Other (Vitamin D deficiency,) Past Surgical History Past Surgical History: Other (Breast biopsies) Family History Family History: No pertinent hx (No family history of tremor) Social History Social History , caffeine history as above, retired, no tobacco or alcohol Current Medications Current Medications Current Medications Meclizine HCl (Antivert) 25 mg 1X ONCE PO Last administered on 12/08/20at 14:43; Start 12/08/20 at 14:30; Stop 12/08/20 at 14:31; Status DC Ondansetron HCl (Zofran) 4 mg 1X ONCE IVP Last administered on 12/08/20at 14:43; Start 12/08/20 at 14:30; Stop 12/08/20 at 14:31; Status DC Ketorolac Tromethamine (Toradol 30mg Vial) 30 mg 1X ONCE IVP Last administered on 12/08/20at 17:09; Start 12/08/20 at 16:45; Stop 12/08/20 at 16:47; Status DC Sodium Chloride 500 ml @ 500 mls/hr 1X ONCE IV Last administered on 12/08/20at 17:09; Start 12/08/20 at 17:00; Stop 12/08/20 at 17:59; Status DC Ondansetron HCl (Zofran) 4 mg PRN Q8HRS PRN IVP NAUSEA/VOMITING; Start 12/08/20 at 17:00; Stop 12/09/20 at 16:59 Acetaminophen (Tylenol) 650 mg PRN Q4HRS PRN PO FEVER > 100.3'F; Start 12/08/20 at 17:00; Stop 12/09/20 at 16:59 Sodium Chloride 1,000 ml @ 75 mls/hr [id number] IV Last administered on 12/08/20at 20:25; Start 12/08/20 at 19:45 Propranolol HCl (Inderal) 10 mg BID PO Last administered on 12/09/20at 10:00; Start 12/09/20 at 09:00 Active Scripts Active Meclizine Hcl 25 Mg Tablet 1 Tab PO TID Zofran Odt (Ondansetron) 4 Mg Tab.rapdis 1 Tab SL Q6HRS PRN Reported Vitamin D2 (Ergocalciferol (Vitamin D2)) 1,250 Mcg Capsule 1 Cap PO WEEKLY Hydrochlorothiazide 25 Mg Tablet 25 Mg PO DAILY Atorvastatin Calcium 10 Mg Tablet 10 Mg PO HS Multivitamins With Minerals (Multivitamin With Minerals) 1 Each Tablet 1 Each PO DAILY [B12] 1 Tab PO DAILY Allergies Allergies: Coded Allergies: Penicillins (Verified Allergy, Intermediate, RASH, 08/25/16) ROS Review of System Negative for fever, chills, weight loss, shortness of breath, chest pain, indigestion, hematochezia, melena, and dysuria. Full 14-point review of systems is negative. Physical Exam Physical Examination General: Well-developed, well-nourished black female in no acute distress HEENT: Normocephalic andatraumatic. Tympanic membranes clear.Temporal arteriespulsatile and nontender. Neck: Supple without bruit, no meningismus Musculoskeletal: Stability:see neurologic. Gait exam:see neurologic. Tone:see neurologic.Strength:see neurologic. Neurological: Mental Status:intact, orientation, memory, attention span/concentration, language, fund of knowledge normal. Cranial Nerves:Pupils equal and reactive to light, extraocular movements areintact, visual [place] are full to confrontation. Facial sensation is normal. There is no facial asymmetry. Vestibulo-ocular reflex is intact. Sachi-Hallpike maneuver negative. Palate elevates and tongue protrudes in midline. All other cranial related problems are negative except as mentioned before.Reflexes:2+ and symmetric with flexor plantar responses. Motor:5/5 strength with normal tone and bulk. Coordination:Finger-nose finger and [id number] testing are normal. Rapid alternating movements and fine finger movements are intact. Mild postural tremor. Gait:Normal, including tandem. Sensory:Normal pinprick, vibration, light touch, proprioception. Vitals VITALS Vital Signs Date Time Temp Pulse Resp B/P (MAP) Pulse Ox O2 Delivery O2 Flow Rate FiO2 12/09/20 10:00 71 149/74 12/09/20 08:00 Room Air 12/09/20 07:00 98.2 18 98 98.2 Labs Labs Laboratory Tests Test 12/08/20 14:13 12/08/20 14:35 White Blood Count 5.1 x10^3/uL (4.0-11.0) Red Blood Count 4.29 x10^6/uL (3.50-5.40) Hemoglobin 12.3 g/dL (12.0-15.5) Hematocrit 36.4 % (36.0-47.0) Mean Corpuscular Volume 85 fL (79-100) Mean Corpuscular Hemoglobin 29 pg (25-35) Mean Corpuscular Hemoglobin Concent 34 g/dL (31-37) Red Cell Distribution Width 14.6 % (11.5-14.5) Platelet Count 152 x10^3/uL (140-400) Neutrophils (%) (Auto) 86 % (31-73) Lymphocytes (%) (Auto) 10 % (24-48) Monocytes (%) (Auto) 3 % (0-9) Eosinophils (%) (Auto) 1 % (0-3) Basophils (%) (Auto) 1 % (0-3) Neutrophils # (Auto) 4.4 x10^3/uL (1.8-7.7) Lymphocytes # (Auto) 0.5 x10^3/uL (1.0-4.8) Monocytes # (Auto) 0.1 x10^3/uL (0.0-1.1) Eosinophils # (Auto) 0.0 x10^3/uL (0.0-0.7) Basophils # (Auto) 0.0 x10^3/uL (0.0-0.2) Urine Collection Type Unknown Urine Color Yellow Urine Clarity Clear Urine pH 8.0 (<5.0-8.0) Urine Specific Henderson 1.025 (1.000-1.030) Urine Protein Negative mg/dL (NEG-TRACE) Urine Glucose (UA) Negative mg/dL (NEG) Urine Ketones (Stick) Negative mg/dL (NEG) Urine Blood Negative (NEG) Urine Nitrite Negative (NEG) Urine Bilirubin Negative (NEG) Urine Urobilinogen Dipstick 1.0 mg/dL (0.2 mg/dL) Urine Leukocyte Esterase Negative (NEG) Urine RBC 3-5 /HPF (0-2) Urine WBC 1-4 /HPF (0-4) Urine Squamous Epithelial Cells Mod /LPF Urine Bacteria Few /HPF (0-FEW) Urine Mucus Marked /LPF Sodium Level 142 mmol/L (136-145) Potassium Level 3.7 mmol/L (3.5-5.1) Chloride Level 104 mmol/L (98-107) Carbon Dioxide Level 29 mmol/L (21-32) Anion Gap 9 (6-14) Blood Urea Nitrogen 14 mg/dL (7-20) Creatinine 0.8 mg/dL (0.6-1.0) Estimated GFR (Cockcroft-Gault) 84.2 BUN/Creatinine Ratio 18 (6-20) Glucose Level 101 mg/dL (70-99) Calcium Level 8.9 mg/dL (8.5-10.1) Magnesium Level 2.3 mg/dL (1.8-2.4) Total Bilirubin 0.3 mg/dL (0.2-1.0) Aspartate Amino Transf (AST/SGOT) 23 U/L (15-37) Alanine Aminotransferase (ALT/SGPT) 21 U/L (14-59) Alkaline Phosphatase 76 U/L (46-116) Troponin I Quantitative < 0.017 ng/mL (0.000-0.055) Total Protein 7.3 g/dL (6.4-8.2) Albumin 3.7 g/dL (3.4-5.0) Albumin/Globulin Ratio 1.0 (1.0-1.7) Lipase 58 U/L (73-393) Urine Opiates Screen Neg (NEG) Urine Methadone Screen Neg (NEG) Urine Barbiturates Neg (NEG) Urine Phencyclidine Screen Neg (NEG) Urine Amphetamine/Methamphetamine Neg (NEG) Urine Benzodiazepines Screen Neg (NEG) Urine Cocaine Screen Neg (NEG) Urine Cannabinoids Screen Neg (NEG) Urine Ethyl Alcohol Neg (NEG) SARS-CoV-2 Antigen (Rapid) Negative (NEGATIVE) Laboratory Tests Test 12/08/20 14:13 12/08/20 14:35 White Blood Count 5.1 x10^3/uL (4.0-11.0) Red Blood Count 4.29 x10^6/uL (3.50-5.40) Hemoglobin 12.3 g/dL (12.0-15.5) Hematocrit 36.4 % (36.0-47.0) Mean Corpuscular Volume 85 fL (79-100) Mean Corpuscular Hemoglobin 29 pg (25-35) Mean Corpuscular Hemoglobin Concent 34 g/dL (31-37) Red Cell Distribution Width 14.6 % (11.5-14.5) Platelet Count 152 x10^3/uL (140-400) Neutrophils (%) (Auto) 86 % (31-73) Lymphocytes (%) (Auto) 10 % (24-48) Monocytes (%) (Auto) 3 % (0-9) Eosinophils (%) (Auto) 1 % (0-3) Basophils (%) (Auto) 1 % (0-3) Neutrophils # (Auto) 4.4 x10^3/uL (1.8-7.7) Lymphocytes # (Auto) 0.5 x10^3/uL (1.0-4.8) Monocytes # (Auto) 0.1 x10^3/uL (0.0-1.1) Eosinophils # (Auto) 0.0 x10^3/uL (0.0-0.7) Basophils # (Auto) 0.0 x10^3/uL (0.0-0.2) Urine Collection Type Unknown Urine Color Yellow Urine Clarity Clear Urine pH 8.0 (<5.0-8.0) Urine Specific Henderson 1.025 (1.000-1.030) Urine Protein Negative mg/dL (NEG-TRACE) Urine Glucose (UA) Negative mg/dL (NEG) Urine Ketones (Stick) Negative mg/dL (NEG) Urine Blood Negative (NEG) Urine Nitrite Negative (NEG) Urine Bilirubin Negative (NEG) Urine Urobilinogen Dipstick 1.0 mg/dL (0.2 mg/dL) Urine Leukocyte Esterase Negative (NEG) Urine RBC 3-5 /HPF (0-2) Urine WBC 1-4 /HPF (0-4) Urine Squamous Epithelial Cells Mod /LPF Urine Bacteria Few /HPF (0-FEW) Urine Mucus Marked /LPF Sodium Level 142 mmol/L (136-145) Potassium Level 3.7 mmol/L (3.5-5.1) Chloride Level 104 mmol/L (98-107) Carbon Dioxide Level 29 mmol/L (21-32) Anion Gap 9 (6-14) Blood Urea Nitrogen 14 mg/dL (7-20) Creatinine 0.8 mg/dL (0.6-1.0) Estimated GFR (Cockcroft-Gault) 84.2 BUN/Creatinine Ratio 18 (6-20) Glucose Level 101 mg/dL (70-99) Calcium Level 8.9 mg/dL (8.5-10.1) Magnesium Level 2.3 mg/dL (1.8-2.4) Total Bilirubin 0.3 mg/dL (0.2-1.0) Aspartate Amino Transf (AST/SGOT) 23 U/L (15-37) Alanine Aminotransferase (ALT/SGPT) 21 U/L (14-59) Alkaline Phosphatase 76 U/L (46-116) Troponin I Quantitative < 0.017 ng/mL (0.000-0.055) Total Protein 7.3 g/dL (6.4-8.2) Albumin 3.7 g/dL (3.4-5.0) Albumin/Globulin Ratio 1.0 (1.0-1.7) Lipase 58 U/L (73-393) Urine Opiates Screen Neg (NEG) Urine Methadone Screen Neg (NEG) Urine Barbiturates Neg (NEG) Urine Phencyclidine Screen Neg (NEG) Urine Amphetamine/Methamphetamine Neg (NEG) Urine Benzodiazepines Screen Neg (NEG) Urine Cocaine Screen Neg (NEG) Urine Cannabinoids Screen Neg (NEG) Urine Ethyl Alcohol Neg (NEG) SARS-CoV-2 Antigen (Rapid) Negative (NEGATIVE) Images Images CT HEAD/BRAIN WO Date: 12/08/2020 2:27 PM Clinical Indication: Reason: dizziness / Spl. Instructions: / History: Comparison: 06/29/2020. Technique: 5 mm axial tomographic images were obtained of the head without cont rast. These were viewed on brain and bone windows. One or more of the following dose reduction techniques were utilized: Automated exposure control (AEC), Adjustment of mA and/or kV according to patient size, Use of iterative reconstruction technique such as ASiR, CT scan done according to ALARA and image gently/image wisely Findings: Mild generalized cerebral and cerebellar volume loss. Mild nonspecific periventricular hypoattenuation, most commonly seen with chronic small vessel ischemic disease. Calcified atherosclerosis of the bilateral cavernous and paraclinoid internal carotid arteries and intracranial vertebral arteries. No intra- or extra-axial mass or fluid collection. No acute hemorrhage. The ventricles are normal in size, shape, and morphology. The watson-white matter junction is normal. The subarachnoid cisterns are patent. The visualized paranasal sinuses are normal. The visualized portions of the orbits and globes are normal. The mastoid air cells are clear. The termite control representative topogram shows no lytic lesion or fracture. Impression: No acute intracranial process. Mild cerebral volume loss. Mild chronic small vessel ischemic disease. Assessment/Plan Assessment/Plan Impression: Vertigo, most likely benign positional vertigo, no evidence of central disease, symptoms have cleared and there are no signs of vestibular dysfunction now. Essential tremor Recommendations: Consider outpatient ear nose and throat evaluation or vestibular audiology evaluation if symptoms recur I started propanolol 10 mg twice a day and discussed side effects Follow-up with me or my nurse practitioner in 1 month, I believe she is already scheduled for 01/18 Hold on MRI of the brain given the lack of central findings Okay for discharge Thank you for letting me help with the patient's care. DIONICIO TOURE MD Dec 09, 2020 10:32
--- NOTE | 2020-12-09 10:57 | NUR ---
SW following. Discussed with RN, pt from home with spouse, room air, cardiac diet, COVID-19 negative. Neuro cleared pt. PT eval prior to discharge per Dr. Redding. Possible discharge home today. RN advised no SW needs at this time. SW will continue to follow.
[2020-12-09 11:00] VITALS: BP 164/81
[2020-12-09] MEDS ORDERED: PROP10TA PO (12:38)
--- NOTE | 2020-12-09 12:39 | DISCH ---
DISCHARGE INSTRUCTIONS Condition on Discharge Condition on Discharge: Stable Activity After Discharge Activity Instructions for Disc: Activity as tolerated Lifting Instructions after Dis: Do not lift >10 pounds Exercise Instruction after Dis: Walk 15 min, 3 x per day Driving Instructions after Dis: Do not drive today Diet after Discharge Diet after Discharge: Cardiac Follow-Up Follow up with: PCP within 2 weeks of discharge Follow Up With: Neurology in 1 month appointment on January 18 RAVEN SCHULZ MD Dec 09, 2020 12:39
[2020-12-09 15:00] VITALS: BP 166/59
--- NOTE | 2020-12-09 15:35 | NUR ---
DISCHARGE INSTRUCTIONS GIVEN, QUESTIONS AND CONCERNS ANSWERED, PATIENT VERBALIZED UNDERSTANDING OF DISCHARGE INFORMATION INCLUDING TAKING ALL MEDICATIONS INSTRUCTED AND FOLLOWING UP WITH HER PRIMARY PROVIDER AND DR. FUNEZ INSTRUCTED.
--- NOTE | 2020-12-09 16:15 | NUR ---
PATIENT LEAVES THE UNIT PER W/C AND ACCOMPANIED BY CLINIC MANAGER AND HER DAUGHTER, EMOTIONAL SUPPORT GIVEN, FOLLOW UP APPOINTMENTS ENCOURAGED.
--- NOTE | 2020-12-14 09:07 | PDOC3 ---
[facility]-Discharge Summary Date of Admission: Date of Admission: Dec 08, 2020 Date of Discharge: Date of Discharge: Dec 09, 2020 Discharge Diagnosis: Discharge Diagnosis: Vertigo, most likely benign positional vertigo, no evidence of central disease Essential tremor Consults: Consults: Neuro recs: Recommendations: Consider outpatient ear nose and throat evaluation or vestibular audiology evaluation if symptoms recur I started propanolol 10 mg twice a day and discussed side effects Follow-up with me or my nurse practitioner in 1 month, I believe she is already scheduled for 01/18 Hold on MRI of the brain given the lack of central findings Okay for discharge Hospital Course: Hospital Course: 75-year-old female who presents with headache, flu symptoms and some dizziness. She had some vomiting. She felt a little short of breath. She has been vaccinated. She states she cannot walk and barely stand up. She states she was worked up for the same thing within the recent past. We really never found it on official diagnosis. I discussed the case with ER physician. We are going to admit the patient. By day of discharge, pt was clinically stable and ready for discharge. Rest of hospital course was uneventful Disposition: Disposition/Orders: D/C to Home Activity: Activity: Resume previous activity Diet: Diet: Cardiac Medications: Home Meds Active Scripts Propranolol Hcl (PROPRANOLOL HCL) 10 Mg Tablet, 10 MG PO BID for tremors for 30 Days, #60 TAB 2 Refills Prov:RAVEN SCHULZ MD 12/09/20 Meclizine Hcl (MECLIZINE HCL) 25 Mg Tablet, 1 TAB PO TID for dizziness, #20 TAB Prov:CHOLO MILLS MD 06/29/20 Ondansetron (ZOFRAN ODT) 4 Mg Tab.rapdis, 1 TAB SL Q6HRS PRN for NAUSEA, #12 TAB Prov:ADRIAN LANE MD 04/08/17 Reported Medications Ergocalciferol (Vitamin D2) (Vitamin D2) 1,250 Mcg Capsule, 1 CAP PO WEEKLY for supplement 12/09/20 Hydrochlorothiazide (Hydrochlorothiazide) 25 Mg Tablet, 25 MG PO DAILY for HTN 12/09/20 Atorvastatin Calcium (ATORVASTATIN CALCIUM) 10 Mg Tablet, 10 MG PO HS for HLD 12/09/20 Multivitamin With Minerals (MULTIVITAMINS WITH MINERALS) 1 Each Tablet, 1 EACH PO DAILY, TAB 08/25/16 [B12] No Conflict Check, 1 TAB PO DAILY 08/25/16 Scheduled Atorvastatin Calcium (Atorvastatin Calcium), 10 MG PO HS, (Reported) Ergocalciferol (Vitamin D2) (Vitamin D2), 1 CAP PO WEEKLY, (Reported) Hydrochlorothiazide (Hydrochlorothiazide), 25 MG PO DAILY, (Reported) Meclizine Hcl (Meclizine Hcl), 1 TAB PO TID Multivitamin With Minerals (Multivitamins With Minerals), 1 EACH PO DAILY, (Reported) Propranolol Hcl (Propranolol Hcl), 10 MG PO BID [B12], 1 TAB PO DAILY, (Reported) Scheduled PRN Ondansetron (Zofran Odt), 1 TAB SL Q6HRS PRN for NAUSEA Total Time: Total Time: Total time spent was 32 minutes in preparing scripts, discharge planning with SW and RN, and preparing this discharge summary. Patient seen and examined on day of discharge. Justicifation of Admission Dx: Justifications for Admission: Justification of Admission Dx: Yes (Vertigo) RAVEN SCHULZ MD Dec 14, 2020 09:07
== END 2020-12-09 16:15 | disposition home or self-care (01) ==
LOC: ER 13:48 → 5 NORTH 16:44
PROVIDERS: ADMIT Internal Medicine; ATTEND Internal Medicine
DX: R42 Dizziness and giddiness (principal); Z20.822 Contact with and (suspected) exposure to COVID-19; I10 Essential (primary) hypertension; E89.0 Postprocedural hypothyroidism; R11.0 Nausea; R10.9 Unspecified abdominal pain; R53.1 Weakness; R29.700 NIHSS score 0; E78.5 Hyperlipidemia, unspecified; G25.0 Essential tremor; Z79.899 Other long term (current) drug therapy; Z98.890 Other specified postprocedural states; Z98.51 Tubal ligation status
CPT/HCPCS: 36415; 70450; 71045; 80053; 80307; 81001; 83690; 83735; 84484; 85025; 87426; 93005; 96361; 96374; 96375; 97116; 97161; 97165; 97535; 99285; G0378; J1885; J2405; J7030; J7040; J8597; U0003; U0005; G0379